=== PATIENT | male | born 1960 ===

== ENCOUNTER 2022-04-15 08:26 | Emergency (ER) | payer BC ==
[2022-04-15] MEDS ORDERED: Ondansetron 4 MG/2 ML SDV IVPUSH ONE (08:27)
[2022-04-15] MEDS ORDERED: LORazepam 2 MG/ML SDV IVPUSH ONE (08:27)
[2022-04-15] MEDS ORDERED: Sodium Chloride 0.9% 1,000 ML IV ONE (08:28)
[2022-04-15] MEDS ORDERED: Lactated Ringers 1,000 ML IV SCH (08:30)
[2022-04-15 09:03] LABS: ACETAMINOPHEN 0 ug/mL (10-30)
[2022-04-15] MEDS ORDERED: Lactated Ringers 1,000 ML IV ONE (10:55)
== END 2022-04-15 18:12 | disposition home or self-care (01) ==
LOC: JD.ED 08:26
DX: F10.929 Alcohol use, unspecified with intoxication, unspecified (principal); Z20.822 Contact with and (suspected) exposure to COVID-19
CPT/HCPCS: 36415; 36600; 70450; 71045; 80048; 80053; 80143; 80179; 80306; 80307; 81003; 82803; 83605; 84484; 85025; 85610; 85730; 87635; 93005; 96361; 96374; 96375; 99285; J2060; J2405; J7030; J7120; 93010; 99284; U0002

== ENCOUNTER → 2025-06-21 | Day surgery (SDC) | payer OTHER ==
[~2025-06-21] MED LIST: Lidocaine 1% 2 ML ONE; Lidocaine 1% 4 ML ONE; Propofol 200 MG/20 ML SDV ONE; Sodium Chloride 0.9% 10 ML Syringe FLUSH PRN; Sodium Chloride 0.9% 10 ML Syringe FLUSH SCH
[2025-06-21] MEDS: Lactated Ringers 1,000 ML IV SCH (06:20)
== END | disposition home or self-care (01) ==
LOC: JD.SDS 06:07
PROVIDERS: ATTEND Surgery
DX: Z12.11 Encounter for screening for malignant neoplasm of colon (principal); D12.5 Benign neoplasm of sigmoid colon; K57.30 Diverticulosis of large intestine without perforation or abscess without bleeding; Z86.0101 Personal history of adenomatous and serrated colon polyps
CPT/HCPCS: 45385; 88305; J2003; J2704; J7120; 00811